=== PATIENT | male | born 1985 | race Caucasian/White ===

== ENCOUNTER 2016-10-25 17:05 | Emergency (ER) | payer OTHER, BC ==
[~2016-10-25] VITALS: Ht 185.4 cm; Wt 89.3 kg
[2016-10-25 17:26] VITALS: TEMP 36.8; Ht 185.4 cm; Wt 89.3 kg
[2016-10-25] MEDS ORDERED: PROPARACAINE HCL 0.5% OP SOLN 15 ML BTL ONE (17:29)
[2016-10-25] MEDS ORDERED: ONDANSETRON INJ 2 MG/ML 2 ML VIAL IV STA (17:49)
[2016-10-25] MEDS ORDERED: MoRPHine SULFATE 4 MG/ML 1 ML CARP\\VIAL IV STA ×2 (17:49→18:32)
[2016-10-25] MEDS ORDERED: HYDROmorphone INJ 1 MG/ML SYR IV STA (19:16)
[2016-10-25 19:19] VITALS: BP 160/107
[2016-10-25] MEDS ORDERED: ERYTHROMYCIN OP OINT 5 MG/GM 3.5 GM TUBE OP ONE (20:30)
[2016-10-25] MEDS ORDERED: CYCLOPENTOLATE HCL 1% OP SOLN 2 ML BTL OP ONE (20:30)
[2016-10-25] MEDS ORDERED: HYDROmorphone INJ 0.5 MG/0.5 ML SYR IV STA (21:02)
[2016-10-25] MEDS ORDERED: OXYC1TAB3 PO (21:12)
--- NOTE | 2016-10-25 21:14 | EMERGENCY ROOM VISIT NOTE ---
History First contact with patient: 17:51 Chief Complaint: EYE ASSESSMENT Stated Complaint: [place] IN EYES, BURNING- WC History of Present Illness The patient is a 30 year old male who presents to the Emergency Department by private vehicle with his coworker for evaluation of [place] exposure in the bilateral eyes. He reports that while at work he was wearing his safety glasses and contact lenses when [place] dust was blown directly into his face. He reports immediately washed his eyes for several minutes. He is brought immediately to the emergency Department for further evaluation and management. He reports intense amount of pain in the bilateral eyes and a gritty sensation under his eyelids. He rates his current discomfort as a 10/10. He reports no history of similar exposures. He does wear contact lenses daily. He denies any headaches, dizziness, lightheadedness, nausea, or vomiting. Review of Systems A complete 10-point Review of Systems was discussed with the patient's guardian , with pertinent positives and negatives listed in the History of Present Illness. All remaining Review of Systems questions can be considered negative unless otherwise specified. Past Medical/Surgical History Surgical Problems: (1) History of knee surgery (2) History of shoulder surgery Family History No significant family history Social History Smoking Status: Never Smoker Smokeless Tobacco Use: No Alcohol Use: occasionally Drug Use: none Marital Status: in relationship Housing Status: lives with significant other Occupation Status: employed Current/Historical Medications Scheduled PRN Oxycodone Ir (Roxicodone Ir), 1-2 TAB PO Q4H PRN for Pain Allergies Coded Allergies: No Known Allergies (Verified , 10/25/16) Physical Exam Vital Signs Date Time Temp Pulse Resp B/P Pulse Ox O2 Delivery O2 Flow Rate FiO2 10/25/16 21:29 90 18 98 Room Air 10/25/16 19:19 82 18 160/107 95 Room Air 10/25/16 17:26 36.8 85 16 149/85 96 Room Air Right Eye Acuity: unable to obtain - Rickey NELSON aware Left Eye Acuity: unable to obtain Pain Rating (0-10): 10.0 Physical Exam VITAL SIGNS - Vital signs and nursing notes were reviewed. GENERAL - 30-year-old male appearing his stated age. Communicates well with provider and answers questions appropriately. Lyme dust noted across the face. HEAD - Normocephalic, Atraumatic. No Li's Sign or Raccoon's Eyes. No depressed skull fractures palpable. EYES - PERRL with EOMI bilaterally. Injection noted in the bilateral eyes. There is a small stippling of foreign body/Lyme material noted in the LEFT eye overlying the contact lens. The RIGHT eye is without foreign body. EARS - No deformities of external structures noted on gross examination bilaterally. Handle of malleus, umbo, cone of light, pars tensa/flaccid all easily visualized. NOSE - Midline and without cyanosis. Without discharge. MOUTH/OROPHARYNX - Without perioral cyanosis. Tongue midline with equal elevation of palate bilaterally. No tonsillar hypertrophy, erythema, or exudates noted. Good dentition noted. NECK - FROM assessed. No cervical lymphadenopathy noted. Medical Decision & Procedures Medications Administered Medications (Trade) Dose Ordered Sig/[place] Route Start Time Stop Time Status Last Admin Dose Admin Proparacaine HCl (Alcaine 0.5% Oph Soln) 225 drops STK-MED ONCE .ROUTE 10/25/16 17:29 10/25/16 17:31 DC 10/25/16 17:29 225 DROPS Morphine Sulfate (MoRPHine SULFATE INJ) 4 mg NOW STAT IV 10/25/16 17:49 10/25/16 17:50 DC 10/25/16 18:16 4 MG Ondansetron HCl (Zofran Inj) 4 mg NOW STAT IV 10/25/16 17:49 10/25/16 17:50 DC 10/25/16 18:16 4 MG Morphine Sulfate (MoRPHine SULFATE INJ) 4 mg NOW STAT IV 10/25/16 18:32 10/25/16 18:33 DC 10/25/16 18:38 4 MG Hydromorphone HCl (Dilaudid Inj) 1 mg NOW STAT IV 10/25/16 19:16 10/25/16 19:17 DC 10/25/16 19:24 1 MG Cyclopentolate HCl (Cyclogyl 1% Oph Soln) 2 drops NOW ONCE OP 10/25/16 20:30 10/25/16 20:31 DC 10/25/16 21:17 2 DROPS Erythromycin (Erythromycin Oph Oint) 1 appln NOW ONCE OP 10/25/16 20:30 10/25/16 20:31 DC 10/25/16 21:17 1 APPLN Hydromorphone HCl (Dilaudid Inj) 0.5 mg NOW STAT IV 10/25/16 21:02 10/25/16 21:03 DC 10/25/16 21:17 0.5 MG Oxycodone HCl (Roxicodone Immediate Rel 5MG Home Pack) 1 homepack UD ONCE PO 10/25/16 21:15 10/25/16 21:16 DC 10/25/16 21:18 1 HOMEPACK Procedure Alcaine drops were applied to the bilateral eyes. After proper anesthetization was achieved, a Mehdi lens attached to a 2000 cc bag of NSS was inserted into the eyes without difficulty. The flow of the NSS was adjusted to the patient's comfort. The 2, 1,000 of NSS was allowed to flow through the patient's eye to ensure adequate dilution of any remaining chemicals. The patient tolerated the procedure well and no complications were met. ED Course I was emergently approached by nursing staff and asked to evaluate the patient. On presentation, the patient is a moderate amount of discomfort. His contact lenses were removed after Alcaine drops had been applied. PH was tested in the bilateral eyes and found to be 7.0 bilaterally. The eyes were stained using fluorescein staining. There was a large corneal abrasion noted to the anterior surface of the RIGHT cornea overlying the pupil. There is no abrasion noted to the LEFT cornea. Mehdi lenses were applied to the bilateral eyes and flushed copiously with 2 L of normal saline each. IV lock was established and the patient was treated with 4 mg morphine and 4 mg Zofran intravenously. I did speak with Dr. Louis of ophthalmology immediately. He agrees with plan of action. During the Mehdi lens, the patient had a moderate amount of discomfort and was treated with an additional formerly grams morphine. After Mehdi lens flushing, the patient was treated with 1 mg Dilaudid for ongoing symptoms pain. Repeat pH was found to be 6.5 bilaterally. I did invert the eyelids and attempted to clean the palpebral conjunctiva with moistened swabs. I was able to remove a small piece of foreign body from the LEFT inferior palpebral conjunctival area. There is a large piece of foreign body which I was unable to remove any inferior portion of the RIGHT pupil conjunctiva. Because of this, and the patient's ongoing discomfort, I did elect to speak to ophthalmology. Dr. Louis was kind enough to come to the emergency department to evaluate the patient. Please refer to his note for procedure. The patient was treated with an additional 0.5 mg to a lot of. Cyclogyl drops and erythromycin ophthalmic ointment was applied to the affected eyes for comfort. Patient was provided OxyIR for home. He will see Dr. Louis tomorrow in office. He'll return sooner for any changing or worsening symptoms. Patient discharged home afebrile and in good condition. Medical Decision Given the patient's presentation and the possibility of alkali aceves from the [place] exposure to the affected eyes, I did elect to perform the above-mentioned workup. The patient presents today after being exposed to [place] while at work. After the eyes were stained and pH had been checked, he was copiously irrigated. His pain was adequately controlled the emergency department. I did consult ophthalmology and did have to take them again as I was unable to remove the piece of [place] from his palpebral conjunctiva. There consult service appreciated in the setting of this type of exposure. The patient eventually did receive a moderate amount of relief. He was provided Cyclogyl drops as well as erythromycin ophthalmic ointment and pain medication. He'll follow-up tomorrow in office with Dr. Louis for continued management. He will return sooner in the event of any changing or worsening symptoms. Patient discharged home in good condition. In the evaluation and treatment of this patient, the following differential diagnoses were considered: Corneal Abrasion, Conjunctivitis, Eye Contusion, Globe Injury, Orbital Floor Injury (Blowout Fracture), Corneal Ulcer, Keratitis , Herpes Zoster Opthalmic, Blepharitis, Orbital Cellulitis, Iritis, Scleritis/ Episcleritis, Uveitis, Temporal Arteritis, Subconjunctival Hemorrhage. Impression Primary Impression: Chemical exposure of eye Additional Impression: Eye pain Departure Information Dispostion Home / Self-Care Condition GOOD Prescriptions Oxycodone Ir (Roxicodone Ir) 5 Mg Tab 1-2 TAB PO Q4H Y for Pain, #20 TAB For Initial Treatment Prov: Rickey Orta PA-C 10/25/16 Referrals No Doctor, Assigned (PCP) Jose Louis MD Patient Instructions A Signature Page, My [facility] Additional Instructions You have been treated in the Emergency Department for Chemical Exposure ([place]) to the Bilateral Eyes. You have received pain medicine in the emergency department which impairs your ability to operate a vehicle. It is illegal for you to drive after receiving these medicines. You have been prescribed OxyIR to be used for pain control. This is a narcotic medication. You cannot drive or consume alcohol while on this medicine. This medicine should only be used for pain that cannot be controlled with over-the- counter pain medicines. You have been prescribed Erythromycin Ophthalmic ointment. This is an antibiotic ointment which will help prevent an infection from developing in your affected eye. You should apply a 1 cm ribbon of the ointment to the lower part of the affected eye up to 6 times per day for the next 10 days. Use the Cyclogyl 4 times daily to help with your pain. For pain control, you can use the following [id number] medicines (if >12 yo): - Regular strength (325mg/tab) Tylenol (acetaminophen) 2 tabs every 4-6 hours as needed. Do not exceed 12 tablets in a 24 hour period. Avoid taking more than 4 grams (4000 mg) of Tylenol per day. This includes any other sources of acetaminophen you may take on a regular basis. - Regular strength (200 mg/tab) Advil (ibuprofen) 1-2 tabs every 4-6 hours as needed. Do not exceed a dose of 3200 mg per day. Avoid rubbing your eyes for the next few days as this can cause irritation. Wear sunglasses when outside to help minimize your pain. You should relax in a quiet, dark room to help minimize your symptoms. Cor compresses to your eyes to help with discomfort. Please follow-up with Dr. Louis in office tomorrow as discussed. Please bring a fresh pair of contacts with you as discussed as well. Return to the emergency department if you develop the following symptoms despite treatment course outlined above: blurry vision, loss of vision, fever, intractable pain, increased redness, swelling, or purulent discharge.
[2016-10-25] MEDS ORDERED: OXYCODONE IR HOME PACK PO ONE (21:15)
[2016-10-25 21:29] VITALS: PULSE 90; O2SAT 98
--- NOTE | 2016-10-25 21:44 | CONSULTATION REPORT ---
DATE OF CONSULTATION: 10/25/2016 ER CONSULT REASON FOR CONSULT: Lyme exposure to the eyes with retained lyme material right eye and eye pain. CONSULT RECORD: The patient is a 30-year-old white male with no significant past medical history and no known drug allergies, who works for a [employer] and got lyme in both eyes while wearing contact lenses today. He had copious irrigation at work, and upon presentation at the ER, was found to have a large abrasion in the right eye with what appeared to be retained lyme material in the right eye, unable to be removed. I came to the ER to assess the patient. He has count fingers vision in both eyes. He has SPK to left cornea with a large abrasion of the nasal half of his right cornea. He had received several liters of irrigation to both eyes from Mehdi lenses and his pH is normalized around 7; however, in the inferior fornix of the right eye, there is a large granular white mass, unable to tell if it is just necrotic burn tissueor if the conjunctiva still has lyme present in it. I had Romulo scissors and a forceps, and I excised the necrotic area/lyme embedded area of the inferior conjunctiva of the right eye under proparacaine anesthesia. The patient tolerated the procedure well. He is being discharged home with instructions to apply Cyclogyl drops 4 times a day to both eyes for comfort, erythromycin ophthalmic ointment every 2 hours to both eyes. He can do cold ice compresses to both eyes for comfort and likely be discharged to home with some pain medication to use as needed. He is instructed to follow up in the office the next day and to bring a new pair of contact lenses with him for the possibility of insertion as a bandage lens. I emphasized to him the importance of the followup appointment. EMILY
== END 2016-10-25 21:30 | disposition home or self-care (01) ==
LOC: C.EDB 17:06 → C.EDD 21:30
DX: H10.211 Acute toxic conjunctivitis, right eye (principal); Z77.098 Contact with and (suspected) exposure to other hazardous, chiefly nonmedicinal, chemicals; Y99.0 Civilian activity done for income or pay